=== PATIENT | female | born 1955 | race Caucasian/White ===

== ENCOUNTER 2021-09-08 04:44 | Emergency (ER) | payer OTHER ==
[2021-09-08] MEDS ORDERED: FAMOTIDINE 20 MG/50 ML IVPB 20 MG/50 ML MG IVPB ONE ×2 (04:58→05:01)
[2021-09-08] MEDS ORDERED: methylPREDNISolone NA SUCC 125 MG/2 ML VIAL IVPUSH ONE (04:58)
[2021-09-08] MEDS ORDERED: methylPREDNISolone NA SUCC 125 MG/2 ML VIAL ONE (05:01)
[2021-09-08 05:08] VITALS: TEMP 97.6; BMI 32.8
[2021-09-08 06:32] VITALS: BP 138/85; PULSE 80
== END 2021-09-08 06:41 | disposition home or self-care (01) ==
LOC: JER 04:44
PROC: 3E033GC Introduction of Other Therapeutic Substance into Peripheral Vein, Percutaneous Approach (ICD-10-PCS; principal; 2021-09-08)
PROC: 3E033GC Introduction of Other Therapeutic Substance into Peripheral Vein, Percutaneous Approach (ICD-10-PCS; 2021-09-08)
PROC: 3E033GC Introduction of Other Therapeutic Substance into Peripheral Vein, Percutaneous Approach (ICD-10-PCS; 2021-09-08)
DX: T78.40XA Allergy, unspecified, initial encounter (principal)
CPT/HCPCS: 96374; 96375; 99284-25

== ENCOUNTER 2021-12-14 16:11 | Emergency (ER) | payer OTHER ==
[2021-12-14 16:22] VITALS: BP 152/82; TEMP 98.1; BMI 33.5
[2021-12-14] MEDS ORDERED: predniSONE 20 MG TABLET (UD) PO ONE (18:27)
[2021-12-14] MEDS ORDERED: LORATADINE 10 MG TABLET PO ONE (18:27)
[2021-12-14] MEDS ORDERED: FAMOTIDINE 10 MG TABLET PO ONE (18:27)
[2021-12-14] MEDS ORDERED: predniSONE 20 MG TABLET (UD) ONE (18:29)
[2021-12-14] MEDS ORDERED: FAMOTIDINE 20 MG TABLET ONE (18:29)
[2021-12-14] MEDS ORDERED: LORATADINE 10 MG TABLET ONE (18:29)
[2021-12-14 21:15] VITALS: PULSE 76
== END 2021-12-14 21:14 | disposition home or self-care (01) ==
LOC: JERFT 16:11
DX: R22.0 Localized swelling, mass and lump, head (principal)
CPT/HCPCS: 99283-25

== ENCOUNTER 2021-12-15 04:14 | Emergency (ER) | payer OTHER ==
[2021-12-15 05:27] VITALS: BP 166/96; PULSE 100; TEMP 98.1; BMI 33.6
== END 2021-12-15 05:19 | disposition home or self-care (01) ==
LOC: JER 04:14
DX: T78.40XA Allergy, unspecified, initial encounter (principal)
CPT/HCPCS: 99281-25